=== PATIENT | female | born 2000 | race Caucasian/White ===

== ENCOUNTER 2022-02-19 14:19 | Inpatient (IN) | payer OTHER ==
[~2022-02-19] VITALS: Ht 175.3 cm; Wt 95.8 kg
[~2022-02-19 14:19] MED LIST: BACTROBAN OINT22 GM EXT; KEFLEX CAP 500500 MG PO; NORCO 5-325 TA1 EACH PO
[2022-02-19 15:04] LABS: HEMOGLOBIN 14.8 gm/dl (12.3-15.3); RED BLOOD COUNT 4.99 M/UL (4.00-5.10); WHITE BLOOD COUNT 12.1 K/UL (4.5-11.0)
[2022-02-19 15:57] LABS: BUN/CREATININE RATIO 7 (0-10)
[2022-02-19] MEDS ORDERED: TRAZODONE HCL50 MG PO (16:37)
[2022-02-19] MEDS ORDERED: VENLAFAXINE HCL75 M1 PO (16:37)
[2022-02-20 05:08] LABS: HEMOGLOBIN 13.2 gm/dl (12.3-15.3); WHITE BLOOD COUNT 13.2 K/UL (4.5-11.0)
[2022-02-20 05:10] LABS: RED BLOOD COUNT 4.46 M/UL (4.00-5.10)
[2022-02-20 05:41] LABS: BUN/CREATININE RATIO 12 (0-10)
[2022-02-21 04:48] LABS: HEMOGLOBIN 11.9 gm/dl (12.3-15.3); RED BLOOD COUNT 4.06 M/UL (4.00-5.10)
[2022-02-21 05:06] LABS: BUN/CREATININE RATIO 11 (0-10)
--- NOTE | 2022-02-21 10:07 | NUR ---
At 0655 versed stopped and diprian decreased to 50mcg per MD request. Pt tolerated well and diprivan decreased to 25mcg at 0718. Pt began waking but not following commands at this time. At 0845 diprivan stopped and pt monitored for waking/ following commands. pt continued to respond more and was following commands. per md order pt was placed on cpap mode at 0925. She maintained adequate tidal volumes and O2 saturation and was subsequently extubated per md order to 4lnc. o2 sat remains in the 90's at this time. will continue to monitor.
--- NOTE | 2022-02-21 13:51 | NUR ---
Mrs. Mcgarry's grandmother has reported to me that the patient has been going with her biological mother to sell her body in [employer] for drugs. The patient is unable to confirm this information at this time. I have contacted hospital social worker as well as the patient physcian.
--- NOTE | 2022-02-21 16:15 | NUR ---
The patient is anxious and confused. and continues to try to get out of bed. I have reoriented her multiple times, but she continues to become confused. contacted to obtain an order for a sitter.
--- NOTE | 2022-02-22 00:09 | NUR ---
PRIOR TO SERIES OF EVENTS PT WAS ALERT TO SELF. PT PULLING AT LINES, F/C, ...ETC. HOWEVER PATIENT WAS PLEASANTLY CONFUSED AND WAS NOT IN ANY DISTRESS 02/21/22--2129 PT'S FAMILY (SISTER & BROTHER) VISTING WITH PATIENT WHEN PATIENT BECOME VERBALLY THREATENING STAFF MEMBERS AND FAMILY AT THIS TIME. PT STATES THAT SHE WANTS TO GO HOME WITH HER FAMILY AND CONTINUES TO BECOME MORE AGITATED. STAFF ATTEMPTED TO REORIENT HER TO PLACE, TIME, AND WHY SHE IS IN THE HOSPITAL AT THIS TIME. PATIENT WAS NOT RECEPTIVE TO STAFF. GRANDMOTHER, OR FATHER AT THIS TIME. 02/21/222144 PT BECOMES PHYSICALLY ABUSIVE TO STAFF TRYING TO GRAB, HIT, KICK, BITE IN ANYWAY THAT SHE COULD. PT IS NOT ALERT TO TIME OR PLACE AND REPEATS THAT SHE WANTS TO GO HOME WITH HER FAMILY. NICOLASA PAULINO IS CALLED AND STAFF/ SECURITY IS ALL VERY RESPONSIVE. PATIENT IS PLACED IN THE BED WITH STAFF TRYING TO CALM HER DOWN AND REORIENT AGAIN AT THIS TIME. PT BECAME VERBALLY ABUSIVE AND THREATENING STAFF. PT WAS QUESTIONED WHETHER SHE WAS IN ANY PAIN IN WHICH SHE DENIED AT THIS TIME, PT WAS ASKED SEVERAL TIMES WHAT SHE NEEDED FROM STAFF AT THIS TIME TO REMAIN CALM. STAFF PROVIDED REASSURANCE TO PATIENT THAT SHE HAD TO BE HERE BC OF HER CURRENT MEDICAL CONDITION/ SITUATION. PT REFUSED TO ALLOW STAFF TO ASSIST HER IN ANY WAY, REDUCED STAFF IN THE ROOM TO PROVIDE A CALM ENVIRONMENT WHICH CAUSED PATIENT TO "ACT OUT" EVEN MORE THAN WHAT SHE PREVISOULY HAD. DR. SANCHEZ WAS CALLED AND ORDERED FOR PATIENT TO BE IN VIOLENT RESTRAINTS AND GIVE GEODON 5MG IM X 1 NOW. PT THEN RIPPED IV OUT, HITTING, KICKING AND BITING STAFF. STAFF ASSISTED PLACING PATIENT IN 4 POINT RESTRAINTS ORDERED BY PHYSICIAN. 02/21/222199 PATIENT CONTINUES EVEN IN RESTRAINTS TO PULL AT EVERYTHING WITHIN HER REACH INCLUDING STAFF, FAMILY, F/C, IV LINES. aLL ITEMS WAS PLACED OUT OF REACH OF PATIENT AND THE ROOM WAS STRIPPED OF ANYTHING PATIENT COULD USE TO HARM HERSELF, STAFF, AND FAMILY. PT CONTINUES TO VERBALLY ABUSE STAFF AND BELIEVES THAT WE ARE TRYING TO TAKE HER CHILD FROM HER. STAFF REASSURED PATIENT THAT HER CHILD WAS BEING TAKING CARE OF RIGHT NOW AND THAT WE WAS HERE TO HELP HER GET BETTER TO GO HOME WITH HER CHILD. PATIENT IS LUCID AND BELIEVES THAT WE ARE ALL LYING AND THEN WE ARE CONSPIRAING AGAINST HER TO TAKE HER CHILD. 02/21/22 9379 STAFF IS REDUCED TO ONLY THE NURSE RESPONSIBLE FOR THE PATIENT AND THE GRANDMOTHER IN THE ROOM TO HELP REDUCE STIMULI AND PROVIDE A CALM ENVIRONMENT FOR THE PATIENT. PT CONTINUES TO TRY TO GET UP AGAINST RESTRAINTS AND SKIN IS CHECKED TO ENSURE THAT SHE IS NOT CAUSING HERSELF PHYSICAL HARM AT THIS TIME. SKIN IS CLEAR FROM ANY REDNESS AT THIS TIME THOUGH SHE WILL BE MONITORED Q15 MINUTES UNTIL VIOLENT RESTRAINS CAN BE CHANGED TO NON-VIOLENT OR PATIENT CALMS DOWN TO REMOVE THE RESTRAINTS ALTOGETHER. PATIENT AGAIN CONTINUES TO YELL OUT OBSCENE THINGS AT STAFF AND FAMILY RANDOMLY. PATIENT WILL CALM DOWN AND LAY BACK IN BED FOR APPROX 30 SECONDS EVERY FEW MINUTES AND THEN WILL START AGAIN. MD AND PRESCHOOL ASSISTANT TEACHER AWARE OF INTENSE SITUATION. NO STAFF OR FAMILY WAS HARMED PHYSICALLY DURING SERIES OF EVENTS WITH PATIENT. STAFF WILL CONTINUE TO PROIVDE CARE AND A SAFE ENVIRONMENT FOR PATIENT AND FAMILY.
--- NOTE | 2022-02-22 00:38 | NUR ---
02/22/22 0000 PATIENTS LEG RESTRAINTS WAS REMOVED AT THIS TIME 0015-*-- PT IS NOT TRYING TO HARM HERSELF, STAFF, OR FAMILY AT THIS TIME EVEN WITH RESTRAINTS REMOVED FROM [facility]KA[facility] ANKLES. SITTER IN ROOM WITH PATIENT WELL PATIENTS GRANDMOTHER AND FATHER AT THIS TIME. PT WILL CONTINUED TO BE MONITORED. SUICIDE PRECAUTIONS HAS BEEN IMPLEMENTED ORDERED BY PHYSICIAN DR. SANCHEZ
[2022-02-23 06:31] LABS: HEMOGLOBIN 12.6 gm/dl (12.3-15.3); RED BLOOD COUNT 4.29 M/UL (4.00-5.10)
[2022-02-23 06:38] LABS: WHITE BLOOD COUNT 6.6 K/UL (4.5-11.0)
[2022-02-23 07:04] LABS: BUN/CREATININE RATIO 5 (0-10)
[2022-02-23 08:13] LABS: HBSAG SCREEN Negative (Negative); HCV AB 0.1 (0.0-0.9); HEP A AB, IGM Negative (Negative); HEP B CORE AB, IGM Negative (Negative); HIV AB/P24 AG SCREEN Non Reactive (Non Reactive); RPR Non Reactive (Non Reactive)
[2022-02-24 13:41] LABS: BUN/CREATININE RATIO 6 (0-10)
[2022-02-25] MEDS ORDERED: THERAGRAN M TAB1 EA PO (09:27)
[2022-02-25] MEDS ORDERED: NICOTINE PATCH1 EAC1 TD (09:27)
[2022-02-25] MEDS ORDERED: TOPROL XL25 MG PO (09:27)
[2022-02-25] MEDS ORDERED: PROVENTIL HFA6.7 GM INH (09:27)
[2022-02-25 18:11] LABS: CHLAMYDIA BY NAA Negative (Negative); GONOCOCCUS BY NAA Negative (Negative); TRICH VAG BY NAA Negative (Negative)
== END 2022-02-25 11:55 | disposition home or self-care (01) | DRG 917 ==
LOC: ER1 14:19 → CDU 17:08 → CCU 17:08
PROVIDERS: Emergency Medicine; Internal Medicine; Obstetrics & Gynecology; Physician Assistant; ADMIT Internal Medicine Infectious Disease
PROC: 0BH17EZ Insertion of Endotracheal Airway into Trachea, Via Natural or Artificial Opening (ICD-10-PCS; principal; 2022-02-19)
PROC: 5A1945Z Respiratory Ventilation, 24-96 Consecutive Hours (ICD-10-PCS; 2022-02-19)
DX: T42.4X2A Poisoning by benzodiazepines, intentional self-harm, initial encounter (principal); J96.01 Acute respiratory failure with hypoxia; G92.8 Other toxic encephalopathy; Z20.822 Contact with and (suspected) exposure to COVID-19; E87.2 Acidosis; N17.9 Acute kidney failure, unspecified; F32.A Depression, unspecified; E87.6 Hypokalemia; F10.10 Alcohol abuse, uncomplicated; F19.10 Other psychoactive substance abuse, uncomplicated; F17.210 Nicotine dependence, cigarettes, uncomplicated; T40.5X2A Poisoning by cocaine, intentional self-harm, initial encounter; R68.0 Hypothermia, not associated with low environmental temperature; O99.345 Other mental disorders complicating the puerperium; F53.0 Postpartum depression; T40.722A Poisoning by synthetic cannabinoids, intentional self-harm, initial encounter; T40.2X2A Poisoning by other opioids, intentional self-harm, initial encounter; K21.9 Gastro-esophageal reflux disease without esophagitis; F17.290 Nicotine dependence, other tobacco product, uncomplicated; Z80.51 Family history of malignant neoplasm of kidney; Z83.3 Family history of diabetes mellitus; Z78.1 Physical restraint status
CPT/HCPCS: 31500; 36415; 36600; 70450; 71045; 80048; 80053; 80074; 80307; 81001; 82803; 82962; 83605; 83735; 84132; 84703; 85025; 85027; 85610; 85730; 86592; 87086; 87389; 87661; 92526; 92610; 93005; 94002; 94003; 94640; 94664; 94760; 96365; 96375; 99285; C9113; G0480; J0330; J1170; J1650; J2060; J2250; J2543; J2704; J3475; J3486; J7040; U0002